=== PATIENT | male | born 1985 | race Caucasian/White ===

== ENCOUNTER 2020-04-14 22:36 | Inpatient (IN) | payer OTHER, SELFPAY ==
--- NOTE | ~2020-04-14 | US_ITS ---
EXAMINATION: US right upper quadrant EXAM DATE: 04/17/2020 08:51 INDICATION: Elevated liver function tests. TECHNIQUE: Multiple grayscale and Doppler images of the abdomen right upper quadrant were obtained (b y a technologist who performed the scan) and subsequently reviewed. Correlation is made to CT abdomen pelvis from yesterday. FINDINGS: The pancreatic head and body are normal in appearance. The pancreatic tail is not visualized. The l iver has normal echogenicity and contour. There are no focal liver lesions identified. There is no evidence of intrahepatic biliary duct dilation. Portal venous flow was seen in the hepatopedal, nor mal direction and has normal Doppler waveform. No right-sided hydronephrosis. Common bile duct is normal. The gallbladder wall is normal in thickness, and contracted state. No so nographic evidence of pericholecystic fluid. There is cholelithiasis. Technologist performing exam reports patient did not demonstrate sonographic Tripathi's sign. Please note that this sign is less r eliable in patients who have received pain medication. IMPRESSION: 1. Cholelithiasis. Reviewed, dictated and finalized at location B. IMPRESSION: 1. Cholelithiasis.
--- NOTE | ~2020-04-14 | XR_ITS ---
XR chest port-a-cath/central DATE: 04/15/2020 04:35 INDICATION: Central line placement TECHNIQUE: Portable AP chest on 04/15/2020 at 0436 hours COMPARISON: 04/14/2020 portable AP chest at 2334 hours FINDINGS: Interval placement of a left internal jugular central venous catheter, the tip overlying th e superior vena cava. No pneumothorax is evident. Bilateral hyperinflation of the lungs. Bilateral spinal rods. IMPRESSION: Left internal jugular central venous catheter placement in superior vena cava; no pneumot horax Reviewed, dictated and finalized at Location A. Reviewed, dictated and finalized at location A. IMPRESSION: Left internal jugular central venous catheter placement in superior vena cava; no pneumothorax
--- NOTE | ~2020-04-14 | US_ITS ---
EXAMINATION: US venous doppler [facility] DATE: 04/16/2020 15:58 INDICATION: Left lower limb swelling TECHNIQUE: Grayscale ultrasound images without and with compression and Doppler ultrasound images of the bilateral lower extremity veins were obtained. COMPARISON: None. FINDINGS: The visualized portions of right common femoral vein, profunda (deep) femoral vein, femoral vein, pop liteal vein, posterior tibial veins, peroneal veins, gastrocnemius vein and greater saphenous vein ou tflow are patent. The visualized portions of left common femoral vein, profunda femoral vein, femoral vein, popliteal v ein, posterior tibial veins, peroneal veins, gastrocnemius vein and greater saphenous vein outflow ar e patent. IMPRESSION: 1. No deep venous thrombosis in either lower limb. Reviewed, dictated and finalized at location A.
--- NOTE | ~2020-04-14 | CT_ITS ---
EXAMINATION: CT abdomen pelvis w con DATE: 04/15/2020 01:20 INDICATION: Lower abdominal pain is TECHNIQUE: Computed tomography (CT) of the abdomen and pelvis was performed with 100 cc Omnipaque 350 intravenous contrast. Automated exposure control and iterative reconstruction technique were employe d. Exam dose: 227.69 mGy-cm total exam DLP. COMPARISON: None. FINDINGS: The lung bases are clear. Normal heart size. No pericardial or pleural effusion. There are multiple gallstones. No gallbladder wall thickening or pericholecystic fluid or inflammatio n. No hepatic, splenic, pancreatic, and adrenal or renal space-occupying mass lesion is evident. Ther e is right nephrolithiasis with multiple calculi of the mid right kidney in particular and an approxi mately 3.5 mm lower pole right renal calculus. No left renal or any left or right ureteral calculus. There are however numerous bladder diverticula, the largest approximately 1.9 cm maximal dimension. T here is diffuse bladder wall thickening suggesting cystitis. There is a suprapubic catheter. Normal caliber of the abdominal aorta. No intraperitoneal or retroperitoneal or pelvic mass lesion or adenopathy or ascites. Transverse colostomy. No bowel obstruction obstruction is evident. Hardware is noted in the thoracic spine. There are decubitus ulcers at the ischium bilaterally and sacrum/coccyx with possible osteomyelitis o f the lower sacrum/coccyx. Consider 3 phase radionuclide bone scan for further evaluation as clinical ly appropriate. IMPRESSION: Cholelithiasis Right nephrolithiasis Multiple bladder stones Suprapubic bladder catheter Bladder wall thickening, suggesting possible cystitis Transverse colostomy Cubitus ulcers; cannot exclude ostium myelitis of the distal sacrum/coccyx Reviewed, dictated and finalized at Location A. Reviewed, dictated and finalized at location A.
--- NOTE | ~2020-04-14 | XR_ITS ---
XR chest 1V portable DATE: 04/14/2020 23:41 INDICATION: Fever, tachycardia TECHNIQUE: Portable AP views on 04/30/2020 at 2334 hours COMPARISON: None FINDINGS: Bilateral spinal rods are noted. Bilateral hyperinflation. No pulmonary infiltrate or consolidation, pleural effusion or pulmonary vas cular congestion or pneumothorax is detected. Normal heart size. IMPRESSION: Bilateral hyperinflation Reviewed, dictated and finalized at location A. IMPRESSION: Bilateral hyperinflation
[2020-04-14 22:35] VITALS: BP 82/63; PULSE 124; RESP 20; TEMP 37.4; O2SAT 97
--- NOTE | 2020-04-14 22:57 | ECG_ITS ---
Measurements Intervals Stuart Rate: 124 P: 53 OH: 131 QRS: 140 QRSD: 101 T: 7 QT: 309 QTc: 444 Interpretive Statements SINUS TACHYCARDIA RIGHT AXIS DEVIATION INCOMPLETE RIGHT BUNDLE BRANCH BLOCK BORDERLINE ST-T WAVE ABNORMALITY- INFERIOR LEADS BASELINE ARTIFACT- I, III, AVL, AVF, V1-V2 ABNORMAL ECG Electronically Signed On 04-15-2020 6:53:59 CDT by Clemente Pope D.O.
--- NOTE | 2020-04-14 23:00 | ED.ARRPALP ---
HPI - Arrhythmia/Palpitations General Chief Complaint: Arrhythmia/Palpitations Stated Complaint: high heart rate Time Seen by Provider: 04/14/20 22:37 Source: patient Mode of arrival: EMS History of Present Illness HPI narrative: This patient is a 35 year old male with history of T5 spinal injury with paraplegia, chronic sacral decubitus who presents for evaluation of an elevated heart rate and illness. Patient reports he has been feeling ill with body aches and fatigue for 3 days. He states he was exposed to someone with COVID symptoms on Wednesday. He called EMS tonight because he felt his heart racing, but he denies associated chest pain or sob. On EMS arrival , patient was found to have HR 250s and a fever of 101.8F. He was given a dose of adenosine 6 mg by EMS and his heart rate decreased to 115. He reports 2 months ago he was admitted to [facility] with an elevated heart rate. He states he was discharged without additional medication and he has not had follow up with a machine rebuilder. He also reports he has chronic decubitus ulcers from being in bed all the time. He states he is receiving daily dressing changes. He states that his wounds are large but they are improving. He reports drainage but states that it has not increased. complaint: rapid heart beat Related Data Home Medications Medication Instructions Recorded Confirmed No Home Medications 04/15/20 04/15/20 Allergies Allergy/AdvReac Type Severity Reaction Status Date / Time No Known Allergies Allergy Mild Verified 10/30/09 23:59 Review of Systems Constitutional: Constitutional: Reports fever(s) ENT: Reports sore throat Cardiovascular: Cardiovascular: Denies chest pain and Reports rapid heart rate Respiratory: Respiratory: Denies cough and Denies dyspnea Gastrointestinal: Gastrointestinal: Denies abdominal pain, Denies diarrhea, Denies nausea and Denies vomiting Musculoskeletal: Musculoskeletal: Reports myalgias Neurologic: Reports headache(s) PMFSH Past Medical History Medical History (Updated 04/15/20 @ 08:00 by Zayra Bond MD) Paraplegic spinal paralysis Pneumothorax Tachycardia Family History Family History (Updated 04/15/20 @ 06:46 by Danni Forte RN) Other Unknown family medical history Social History Social History Smoking status: Former smoker Alcohol intake: former Substance use: never Gender identity (if verbalized by the patient): Male Spiritual care concerns: No Exam Const: General: no acute distress and alert Nutritional Appearance: thin Orientation/consciousness: patient oriented x3 HENMT: Head: normocephalic and atraumatic Face and sinus: face symmetric Mouth: Yes Normal oral and palatal mucosa present, Yes lip normal, Yes oropharynx normal and Yes moist mucous membranes Eyes: Pupils: Equal, round and reactive pupils present EOM: EOMs intact bilaterally Chest: Chest palpation & inspection: normal inspection of the chest Resp: Effort & Inspection: normal respiratory effort and no retractions Auscultation: clear to auscultation bilaterally Cardio: Rate: tachycardic Rhythm: regular rhythm Heart sounds: no murmurs GI: GI Palp: Yes Soft to palpation, No Tenderness to palpation present (GI) and No Guarding due to palpation present (GI) Auscultation: normal bowel sounds Other: colostomy mid abdomen Urinary Catheter: Urinary Catheter: patent and draining Skin: Other: PAtient has bilateral ischial decubitus ulcer and a larger sacral decubits ulcer, with copious amounts of yellow drainage, all appear to be stage 4, the sacral and some necrotic tissue Neuro: General: patient oriented x3 Other: patient is paraplegic no movement of leg. Some movement of left proximal arm with left arm contracture Course Course Emergency Course: PAtient came to ER for tachycardia. He also complained of covid exposure and he does not feel well. He has severe decubitus ulcers and he has
[2020-04-14] MEDS: SODIUM CHLORIDE 0.9% IV 1,000 ML 999 ML IV CONT ×2 (23:16→23:59)
[2020-04-14 23:44] LABS: Basophils Percent Auto 0.3 % (0.2-1.2); Eosinophils Percent Auto 0.4 % (0-4.4); Hematocrit 31.7 % (42.0-52.0); Hemoglobin 9.5 g/dL (14.0-18.0); Immature Granulocyte Absolute 0.05 K/mm3 (0.00-0.031); Immature Granulocyte Percent A 0.7 % (0-0.5); Lymphocytes Absolute Auto 0.93 K/mm3 (0.9-3.2); Lymphocytes Percent Auto 12.5 % (18.3-44.2); Mean Corpuscular Hemoglobin 23.7 pg (26-34); Mean Corpuscular Volume 79.1 fl (80-100); Mean Platelet Volume 8.4 fl (7.4-10.4); Monocytes Percent Auto 12.9 % (2.6-8.5); Neutrophils Absolute Auto 5.4 K/mm3 (1.3-6.7); Neutrophils Percent Auto 73.2 % (45.5-73.1); Platelet Count Result 446 k/mm3 (150-375); Red Blood Count 4.01 M/mm3 (4.6-6.20); Red Cell Distribution Width 16.1 % (11.5-14.5); White Blood Count 7.4 K/mm3 (4.5-10.0)
[2020-04-14 23:50] LABS: INR 1.2; Prothrombin Time 14.9 Seconds (11.1-14.7)
[2020-04-14 23:51] LABS: Partial Thromboplastin Time 51.3 SECONDS (22.3-36.8)
[2020-04-14 23:52] LABS: Lactic Acid Reflex 0.8 mmol/L (0.7-2.1)
[2020-04-15] VITALS (12 sets, daily range): BP systolic 80–106; BP diastolic 56–79; PULSE 83–120; RESP 15–20; TEMP 36.3–37.3; O2SAT 95–100; BMI 20.1
[2020-04-15 00:26] LABS: Alanine Aminotransferase 106 U/L (4-50); Albumin Level 2.7 g/dL (3.5-5.1); Alkaline Phosphatase 463 U/L (38-126); Anion Gap 7 mmol/L (8-16); Aspartate Amino Transferase 107 U/L (17-59); Bilirubin,Total 0.5 mg/dL (0.2-1.3); Blood Urea Nitrogen 12 mg/dL (9-20); CRP 13.8 mg/dL (<1.0); Carbon Dioxide 29 mmol/L (22-30); Chloride 95 mmol/L (98-107); Estimated CRCL calculation 128 ml/min; Estimated Glomerular Filt Rate > 60; Glucose 133 mg/dL (75-110); Potassium 3.2 mmol/L (3.4-5.0); Sodium 131 mmol/L (137-145)
[2020-04-15] MEDS: SODIUM CHLORIDE 0.9% IV 1,000 ML 999 ML IV CONT (01:04)
[2020-04-15] MEDS: SODIUM CHLORIDE 0.9% IV 1,000 ML 125 ML IV CONT ×3 (05:45→23:05)
--- NOTE | 2020-04-15 06:34 | ADMGEN ---
This patient, Abran Gibson, was admitted to Intensive Care Unit-5 at 0545. Patient/family oriented to hospital policies and general routines including ID bracelet, bed and alarms, visiting hours, pain management, procedures, bathroom and other care routines, personal items, smoking policy, room service/diet, and visiting hours. Valuables list has been completed. Information on how to activate the Rapid Response Team has been discussed. Patient/Family are encouraged to report perceived risks to care and to ask questions if they do not understand what they are told or what they should do.
--- NOTE | 2020-04-15 07:47 | PM.CNGS ---
Assessment and Plan Assessment and plan (1) Decubitus ulcer of ischium, unstageable: Code(s): L89.300 - Pressure ulcer of unspecified buttock, unstageable Status: Chronic Assessment and Plan: Patient refuses examination at this time. I will return later and see if he will allow evaluation. (2) Decubitus ulcer of sacral region, unstageable: Code(s): L89.150 - Pressure ulcer of sacral region, unstageable Status: Chronic (3) Paraplegic spinal paralysis: Code(s): G82.20 - Paraplegia, unspecified Status: Chronic History of Present Illness Consult details Consult date: 04/15/20 Narrative: Asked to see patient regarding severe sacral and ischial decubiti. He is currently in the ICU. Nursing reports he has been noncooperative and belligerent. [facility] Past Medical History Medical History (Updated 04/15/20 @ 07:52 by Mario Allen MD) Paraplegic spinal paralysis Pneumothorax Tachycardia Family History Family History (Updated 04/15/20 @ 06:46 by Danni Forte RN) Other Unknown family medical history Social History Social History Smoking status: Former smoker Alcohol intake: former Substance use: never Gender identity (if verbalized by the patient): Male Spiritual care concerns: No Meds Home Medications and Allergies Home Medications Medication Instructions Recorded Confirmed Type No Home Medications 04/15/20 04/15/20 History Allergies Allergy/AdvReac Type Severity Reaction Status Date / Time No Known Allergies Allergy Mild Verified 10/30/09 23:59 Vital Signs Vital Signs - 24 hr 04/14/20 22:35 04/15/20 02:29 04/15/20 04:33 Temperature 37.4 C Pulse Rate 124 H 118 H 105 H Respiratory Rate 20 16 16 Blood Pressure 82/63 L 88/67 L 82/58 L Pulse Oximetry 97 99 97 04/15/20 05:45 04/15/20 06:00 Temperature 36.3 C L Pulse Rate 107 H 107 H Respiratory Rate 20 Blood Pressure 87/62 L Pulse Oximetry 95 Results Labs Result diagrams: 04/14/20 23:25 04/14/20 23:25 Labs: Abnormal lab results 04/14/20 04/14/20 04/14/20 Range/Units 23:25 23:25 23:25 RBC 4.01 L (4.6-6.20) M/mm3 Hgb 9.5 L (14.0-18.0) g/dL Hct 31.7 L (42.0-52.0) % MCV 79.1 L (80-100) fl MCH 23.7 L (26-34) pg MCHC 30.0 L (32-36) g/dl RDW 16.1 H (11.5-14.5) % Plt Count 446 H (150-375) k/mm3 Immature Gran % (Auto) 0.7 H (0-0.5) % Neut % (Auto) 73.2 H (45.5-73.1) % Lymph % (Auto) 12.5 L (18.3-44.2) % Craven % (Auto) 12.9 H (2.6-8.5) % Craven # (Auto) 1.0 H (0.1-0.6) K/mm3 Abs Immat Gran (auto) 0.05 H (0.00-0.031) K/mm3 PT 14.9 H (11.1-14.7) Seconds APTT 51.3 H (22.3-36.8) SECONDS Sodium 131 L (137-145) mmol/L Potassium 3.2 L (3.4-5.0) mmol/L Chloride 95 L (98-107) mmol/L Anion Gap 7 L (8-16) mmol/L Creatinine 0.60 L (0.7-1.3) mg/dL Glucose 133 H (75-110) mg/dL Calcium 8.0 L (8.4-10.2) mg/dL AST 107 H (17-59) U/L ALT 106 H (4-50) U/L Alkaline Phosphatase 463 H (38-126) U/L C-Reactive Protein 13.8 H (<1.0) mg/dL Total Protein 6.0 L (6.3-8.2) g/dL Albumin 2.7 L (3.5-5.1) g/dL Diabetes panel 04/14/20 Range/Units 23:25 Sodium 131 L (137-145) mmol/L Potassium 3.2 L (3.4-5.0) mmol/L Chloride 95 L (98-107) mmol/L Carbon Dioxide 29 (22-30) mmol/L BUN 12 (9-20) mg/dL Creatinine 0.60 L (0.7-1.3) mg/dL Glucose 133 H (75-110) mg/dL Calcium 8.0 L (8.4-10.2) mg/dL AST 107 H (17-59) U/L ALT 106 H (4-50) U/L Alkaline Phosphatase 463 H (38-126) U/L Total Protein 6.0 L (6.3-8.2) g/dL Albumin 2.7 L (3.5-5.1) g/dL Calcium panel 04/14/20 Range/Units 23:25 Calcium 8.0 L (8.4-10.2) mg/dL Albumin 2.7 L (3.5-5.1) g/dL Pituitary panel 04/14/20 Range/Units 23:25 Sodium 131 L (137-145) mmol/L Potassium 3.2 L (3.4-5.0) mmol/L
--- NOTE | 2020-04-15 08:58 | PC.NURSE ---
Patient verbally abusive and threatening to staff. Refuses care. Stated leave me the fuck alone. I want to sleep MD and customer service sales consultant able to assess coccyx wound only.
[2020-04-15 09:11] LABS: Add Urine Microscopic? YES; Appearance Urine Cloudy (Clear); Bilirubin Urine Negative (Negative); Blood Urine Negative (Negative); Calcium Oxalate Crystals Urine Present /hpf; Color Urine Yellow (Yellow); Glucose Urine UA Negative (Negative); Ketones Urine Negative (Negative); Leukocyte Esterase Ur 3+ LEU/UL (Negative); Nitrate Urine Positive (Negative); Protein Urine Negative (Negative); Specific Grav Ur 1.025 (1.001-1.035); Squamous Epithelial Cell Urine Rare /hpf (Few); Urobilinogen Urine Negative mg/dL (<2.0); WBC Clumps Urine Present /HPF; WBC Urine >75 /hpf
--- NOTE | 2020-04-15 09:12 | WPDCNINT ---
Assessment and Plan Assessment and plan (1) Sepsis: Code(s): A41.9 - Sepsis, unspecified organism Status: Acute Assessment and Plan: likely secondary to cystitis and osteomyelitis blood cultures sent and pending will send UA and urine culture patient received IV fluid bolus and is on IV fluid maintenance as per report from alf his blood pressure is normally low and his lactate is normal. Has not required vasopressors at this time but may need Levophed support continue empiric vancomycin and Zosyn (2) Tachycardia: Code(s): R00.0 - Tachycardia, unspecified Status: Acute Assessment and Plan: as per ED note, patient had a narrow complex tachycardia and was given adenosine by EMS which led to rhythm being in sinus tachycardia. Patient continues to be in sinus tach will check echocardiogram (3) Sacral decubitus ulcer, stage IV: Code(s): L89.154 - Pressure ulcer of sacral region, stage 4 Status: Acute Assessment and Plan: wound was examined by wound care nurse. Will continue wound care as per recommendation. Patient refused examination by general surgery. Will discuss regarding any possible debridement. (4) Cholelithiasis: Code(s): K80.20 - Calculus of gallbladder without cholecystitis without obstruction Status: Acute Assessment and Plan: bilirubin is normal patient would not allow examination of his abdomen management per surgery (5) Hypokalemia: Code(s): E87.6 - Hypokalemia Status: Acute Assessment and Plan: replace potassium (6) Suspected COVID-19 virus infection: Code(s): Z20.828 - Contact with and (suspected) exposure to other viral communicable diseases Status: Acute Assessment and Plan: COVID-19 suspected. SARS-CoV-2 PCR sent and results pending Patient is in Airborne, Droplet and Contact Isolation Additional Plan DVT prophylaxis - Will start Lovenox Nutrition - Regular diet Code Status - Full Code Total Critical Care Time - 45 minutes Due to a high probability of clinically significant, life threatening deterioration, the patient required my highest level of preparedness to intervene emergently and I personally spent this critical care time directly and personally managing the patient. This critical care time included obtaining a history; examining the patient; pulse oximetry; ordering and review of studies; arranging urgent treatment with development of a management plan; evaluation of patient's response to treatment; frequent reassessment; and discussions with other providers. It was exclusive of separately billable procedures and treating other patients and teaching time. Please see Assessment and Plan section and the rest of the note for further information on patient assessment and treatment Manufacturing Electrician Consult Note Consult date: 04/15/20 Time Seen: 07:40 HPI: Abran Gibson is a 35 year old male with history of T5 spinal injury with paraplegia, chronic sacral decubitus who was brought to ER from his alf for for evaluation of an elevated heart rate and illness. Patient reported in ER that he has been feeling ill with body aches and fatigue for 3 days. He told them that he was exposed to someone with COVID symptoms on Wednesday. He called EMS tonight because he felt his heart racing, but he denies associated chest pain or sob. On EMS arrival , patient was found to have HR 250s and a fever of 101.8F. He was given a dose of adenosine 6 mg by EMS and his heart rate decreased to 115. He reported 2 months ago he was admitted to [facility] with an elevated heart rate. He states he was discharged without additional medication and he has not had follow up with a senior management consultant. He also reported that he has chronic decubitus ulcers from being in bed all the time. He states he is receiving daily dressing changes. He states that his wounds are large but they are impro
--- NOTE | 2020-04-15 09:22 | PM.IMHP ---
H&P: HPI History of Present Illness Date/Time: 04/15/20 09:22 THIS IS AN INPATIENT PATIENT Chief complaint: septic shock, infected decubitus ulcer, Narrative: Abran Gibson is a 35 year old male with paraplegia brought in from the [place] for elevated heart rate and found to have sepsis. Patient states he has been having 'cold chills and sweats' with fever to 101.8 at home for the past 2 days. He has a suprapubic cath x 1 year as well as a colostomy. He feels there is increased output from the colostomy. He is very unhappy and is reluctant/angry to be answering questions. He repeatedly states that this information 'is all on the computer'. He states he slept poorly and states 'just leave me alone'. He then refuses to speak to me after this time. Thus no further information could be obtained from the patient. He also refuses exam at this time According to the ER notes: 35 year old male with history of T5 spinal injury with paraplegia, chronic sacral decubitus who presents for evaluation of an elevated heart rate and illness. Patient reports he has been feeling ill with body aches and fatigue for 3 days. He states he was exposed to someone with COVID symptoms on Wednesday. He called EMS tonight because he felt his heart racing, but he denies associated chest pain or sob. On EMS arrival , patient was found to have HR 250s and a fever of 101.8F. He was given a dose of adenosine 6 mg by EMS and his heart rate decreased to 115. He reports 2 months ago he was admitted to [facility] with an elevated heart rate. He states he was discharged without additional medication and he has not had follow up with a patient relations director. He also reports he has chronic decubitus ulcers from being in bed all the time. He states he is receiving daily dressing changes. He states that his wounds are large but they are improving. He reports drainage but states that it has not increased. Review of Systems Review of Systems: ROS unobtainable: Yes unobtainable due to mental status PMFSH Past Medical History Medical History Paraplegic spinal paralysis Pneumothorax Tachycardia Family History Family History Other Unknown family medical history Social History Social History (Updated 04/15/20 @ 09:30 by Migel Simon MD) Social History: unknown at this time due to patient being uncooperative. Smoking status: Former smoker Alcohol intake: former Substance use: never Gender identity (if verbalized by the patient): Male Spiritual care concerns: No Meds Home Medications and Allergies Home Medications Medication Instructions Recorded Confirmed Type No Home Medications 04/15/20 04/15/20 History Allergies Allergy/AdvReac Type Severity Reaction Status Date / Time No Known Allergies Allergy Mild Verified 10/30/09 23:59 Vital Signs Vital Signs - 24 hr 04/14/20 22:35 04/15/20 02:29 04/15/20 04:33 Temperature 99.3 F Pulse Rate 124 H 118 H 105 H Respiratory Rate 20 16 16 Blood Pressure 82/63 L 88/67 L 82/58 L Pulse Oximetry 97 99 97 04/15/20 05:45 04/15/20 06:00 04/15/20 08:00 Temperature 97.3 F L Pulse Rate 107 H 107 H 109 H Respiratory Rate 20 20 Blood Pressure 87/62 L 80/56 L Pulse Oximetry 95 99 Exam Narrative: Exam Narrative: AF 97.3 98/67 109 20 99% Gen - well-nourished, well-developed male in no acute respiratory distress who is nontoxic-appearing lying semi recumbent in bed HEENT - normocephalic. Neck - unable to exam Chest - unable to exam CV - unable to exam; Tele showing episode of sinus tachycardia Abd - unable to exam Back - unable to exam - unable to exam Ext - unable to exam Neuro - unable to exam Psych - unhappy and uncooperative. belligerent at times. Skin - unable to exam H&P: Results Labs Labs: Short CBC 04/14/20 Range/Units 23:25 WBC 7.4
[2020-04-15] MEDS: POTASSIUM CHLORIDE 20 MEQ PACKET (FOR LIQUID) 40 MEQ PO ×2 (11:35→18:28)
[2020-04-15] MEDS: SOD HYPOCHLORITE 1/4 STRENGTH 473 ML 1 APPLIC TOPICAL (11:36)
[2020-04-15] MEDS: PANTOPRAZOLE SODIUM IV 40 MG VIAL IV PUSH (11:36)
[2020-04-15] MEDS: CENTRAL LINE FLUSH 10 ML IV PUSH ×3 (14:44→23:06)
[2020-04-15 18:12] LABS: SARS-CoV-2 RNA PCR Positive
--- NOTE | 2020-04-15 18:40 | PC.NURSE ---
Dr. Simon notified of Covid results
--- NOTE | 2020-04-15 19:40 | PC.NURSE ---
Patient is being non cooperative, states that he does not want me to listen to his heart or lungs. Refuses dressing changes at this time. Patient was offered Tylenol IV for temperature of 99.4. States he refuses. Patient was told he's covid positive and that fevers are likely being positive. Patient refuses.
--- NOTE | 2020-04-15 21:32 | PC.NURSE ---
I took over care of pt after he fired his first nurse. He initially wouldn't allow me to do his assessment cussing at me and carrying on. He kept referring to Pritesh as a punk ass bitch . I asked him to take a deep breath and start over cause his options for nurses were limited to myself and Pritesh and talking to us like that was unacceptable. I assured him after I did my first assessment I wouldn't uncover him unless necessary but if something went wrong I needed to know his baseline. He seemed to accept that but if he didn't like what I said like your ostomy needs emptied or are you done with your tray he'd start cussing at me and yelling again. I let the ostomy go cause he was cold but stressed it needed empty before it got to full I then set him up for his dinner apparently he hadn't ate yet. While he said he was to cold to let me do my assessment he did uncover to eat. I asked if he needed anything else he did not so I left to see my other pt. Around 2037 while in with my other pt he called out multiple times demanding his nurse but he would never answer what he needed when asked he just responded with send my nurse. I finished care with my other pt then went to check on him. He immediately started cussing and yelling at me cause why didn't I leave my pt to come tend to him he had slid to the side and wanted me to reposition him and he was done w his tray. I told him just as I wouldn't leave my care with him to go somewhere else I wasn't gonna do it to the other pt either that I was there now was there anything else he needed. He then threw all his covers off saying how burning up the room was now and I was incompetent for not coming when he called. I again saw his ostomy and informed him since he was no longer cold I was going to empty it. He continued yelling and cussing at me. As I opening is ostomy he demanded to know if I knew what I was doing since I was so incompetent. I assured him I did and he continued to cuss and called me names so I closed it and left the room with him still screaming and carrying on. He then proceeded to throw the stuff on his tray that was in reach. Vitals are still stable and he is now listening to music in his room. Will continue to monitor.
--- NOTE | 2020-04-15 23:35 | PC.NURSE ---
Pt called out multiple times about not liking his blood pressure cuff on. I told him I'd be in at 2300 and we would discuss it then. When I went in to assess him I brought fresh ice water. Upon going to refill it I discovered that his previous glass was one of the things he threw across the room so I did not refill it but asked if he needed a sip before I left the room he just looked at me. I offered to plug his phone in as well while I was in there. He declined. He said several hateful remarks but was not yelling this time. I explained with him being covid positive we do try to cluster care so not to be in and out and that while he is Q4 blood pressures now I wanted to leave his cuff on so I could check it periodically from the desk since it was still low at 89. I hung his antibiotic and fluids explaining what they both were. He wasn't happy about it but he did allow me to listen to his lungs while in there. His phone and call light were both in reach. I offered once more before leaving to reposition and asked if he needed anything. Pts blood pressure is soft but his vitals are stable will continue to monitor.
[2020-04-16] VITALS (14 sets, daily range): BP systolic 83–93; BP diastolic 51–64; PULSE 74–122; RESP 15–22; TEMP 36.3–37.7; O2SAT 98–100
--- NOTE | 2020-04-16 | ECHO_ITS ---
Patient Info Name: Abran Taylor Main Age: 35 years : 1985 Gender: Male HR: 112 bpm BP: 86 / 52 mmHg Technical Quality: Poor Exam Date: 04/16/2020 10:36 AM [facility] Patient Status: Inpatient Admit Date: 04/15/2020 Staff Ordering Physician: Remi Davis MD Professor Of Food Biochemistry: Negro Tripathi RDCS, RT Attending Provider: Anali Watters DO Exam Type: CA echo doppler color flow Study Info Indications I45.89 - Other specified conduction disorders Complete two-dimensional, color flow and Doppler transthoracic echocardiogram is performed. Summary 1. Complete two-dimensional, color flow and Doppler transthoracic echocardiogram is performed. 2. Technically suboptimal study due to poor sonographic images. 3. Left ventricular chamber dimension is mildly enlarged. 4. Left ventricular systolic function is preserved, estimated at 50-55%. 5. The left ventricular diastolic function is normal. Left Ventricle Technically suboptimal study due to poor sonographic images. Tissue doppler is not performed. Left ventricular systolic function is preserved, estimated at 50-55%. Left ventricular chamber dimension is mildly enlarged. The left ventricular diastolic function is normal. Right Ventricle Right ventricular chamber dimension is not well visualized. Left Atria Left atrial chamber dimension is normal. Right Atria Right atrial chamber dimension is not well visualized. Aortic Valve The aortic valve is trileaflet. There is no aortic valve stenosis. There is no aortic valve regurgitation. Pulmonic Valve There is no pulmonic regurgitation. Mitral Valve There is no mitral valve stenosis. There is no mitral valve regurgitation. Tricuspid Valve The tricuspid valve leaflets are not well visualized. There is no tricuspid valve regurgitation. Pericardium/Pleural There is no pericardial effusion. Inferior Vena Cava Normal inferior vena cava with >50% collapse upon inspiration consistent with normal right atrial pressure, 5 mmHg. Aorta The aortic root size at the sinus of Valsalva is normal. Left Ventricular Outflow Tract Name Value Normal LVOT Doppler LVOT Peak Gradient 3 mmHg LVOT Mean Gradient 1 mmHg LVOT VTI 13 cm LVOT VTI/AV VTI Ratio 0.9 Mitral Valve Name Value Normal MV Doppler MV Decel Nicholas 420 cm/s2 MV PHT 48 ms MV Area (PHT) 4.6 cm2 4.0-5.0 MV Diastolic Function MV E Peak Velocity 70 cm/s MV A Peak Velocity 48 cm/s MV E/A 1.5 MV Decel Time 166 ms Tricuspid Valve Nam
[2020-04-16] MEDS: SODIUM CHLORIDE 0.9% IV 1,000 ML 125 ML IV CONT ×2 (06:13→23:16)
[2020-04-16] MEDS: CENTRAL LINE FLUSH 10 ML IV PUSH ×4 (06:14→23:18)
--- NOTE | 2020-04-16 06:49 | PC.NURSE ---
When I went in to take of the pt and draw his blood. He was very angry and began cursing at me for disturbing him. He stated if I tried to draw his labs he would rip the line out of his neck I was able to empty his chavis and hang meds without waking him.
[2020-04-16] MEDS: PANTOPRAZOLE SODIUM IV 40 MG VIAL IV PUSH (11:01)
--- NOTE | 2020-04-16 11:06 | PCDIET ---
ICU Rounding Note: Patient consuming about half of meals on regular diet with Ensure Compact TID. Last recorded weight is 66kg which is increased from last review. Bowel Motility: 450mL ostomy output today. Labs Reviewed: Pending Meds Noted: Protonix, Zosyn, Vancomycin, NS at 125mL/hr Additional Notes: Pressure ulcers to bilateral buttocks, right heel and sacrum. Following daily in ICU rounds. Assessing/reassessing every 3 days.
[2020-04-16 11:51] LABS: Iron 12 ug/dL (49-181)
[2020-04-16 12:00] LABS: Percent Iron Saturation 6 % (20-50)
[2020-04-16 12:18] LABS: HIV 1/2 Ab P24 Ag Result Negative (Negative)
[2020-04-16 12:28] LABS: Hepatitis B Surface Antigen Negative (Negative)
[2020-04-16 12:34] LABS: HAV RESULT Negative (Negative); Hepatitis B Core IgM Result Negative (Negative)
[2020-04-16 12:46] LABS: Hepatitis C Virus Antibody Negative (Negative)
--- NOTE | 2020-04-16 12:57 | PC.NURSE ---
After continually Refusing most medications, not allowing us to do full assessments head to toe, pt stated that his left leg was swollen, moved covers and agreed with pt, then pt started yelling and stated no one cares about his concerns and stated he is about ready to go home AMA. PT refused drsng change to buttocks and coccyx area, he stated it is to be done 3 times a week, --. This nurse informed him that doctor's have odered for it to be done twice a day, pt refused. Everything that pt states has large amount of profanity with his vocabulary
[2020-04-16 13:34] LABS: Alanine Aminotransferase 55 U/L (4-50); Albumin Level 2.2 g/dL (3.5-5.1); Alkaline Phosphatase 264 U/L (38-126); Anion Gap 4 mmol/L (8-16); Aspartate Amino Transferase 27 U/L (17-59); Bilirubin,Total 0.1 mg/dL (0.2-1.3); Blood Urea Nitrogen 4 mg/dL (9-20); Calcium 7.8 mg/dL (8.4-10.2); Carbon Dioxide 30 mmol/L (22-30); Chloride 104 mmol/L (98-107); Estimated CRCL calculation 136 ml/min; Estimated Glomerular Filt Rate > 60; Glucose 92 mg/dL (75-110); Magnesium 1.9 mg/dL (1.6-2.3); Potassium 4.5 mmol/L (3.4-5.0); Sodium 138 mmol/L (137-145)
[2020-04-16 14:27] LABS: Folic Acid 6.3 ng/mL (2.76->20)
--- NOTE | 2020-04-16 15:11 | PM.IMPN ---
Progress Note: A&P Assessment and Plan (1) Sepsis: Code(s): A41.9 - Sepsis, unspecified organism Status: Acute Assessment and Plan: Present on admission with tachycardia, hypotension and CRP of 14. Blood pressure was responsive to IV fluids. His a central line placed has not required pressors. Chest x-ray clear. Cultures obtained. Most likely sepsis related to his decubitus ulcer but cannot exclude UTI/ urosepsis. Patient has been started on broad-spectrum IV antibiotics Zosyn and vancomycin. Continue IV fluids. Follow up on cultures. (2) Tachycardia: Code(s): R00.0 - Tachycardia, unspecified Status: Acute Assessment and Plan: Patient noted to have narrow complex tachycardia in the emergency room and received adenosine. Probably SVT. Rhythm has returned to normal sinus tachycardia. Heart rate overall has improved with IV fluids. Continue telemetry. No home medications listed . echocardiogram revealed ejection fraction of 55% with no valvular abnormalities (3) Sacral decubitus ulcer, stage IV: Code(s): L89.154 - Pressure ulcer of sacral region, stage 4 Status: Acute Assessment and Plan: Unable to visualize wound at this time. General surgery was consult but they also were not able to visualize the wound. Switch Engineer was allowed to see the wound. CT scan showing decubitus ulcers at the ischium bilaterally and sacrum/coccyx with possible osteomyelitis of the lower sacrum/coccyx. Most likely the etiology of his sepsis. Wound care nurse has been consulted. Continue dressing changes. Continue IV antibiotics. Consider further testing to determine if patient with osteomyelitis (although utility arborist mentions bone is visibile on exam) (4) Complicated UTI (urinary tract infection): Code(s): N39.0 - Urinary tract infection, site not specified Status: Acute Assessment and Plan: UA noted. UCx pending. Follow up with cultures. Routine SP care. Continue IV antibiotics. (5) Decubitus ulcer of ischium, unstageable: Code(s): L89.300 - Pressure ulcer of unspecified buttock, unstageable Status: Chronic Assessment and Plan: as above. Continue dressing changes. Continue IV antibiotics. (6) Hypokalemia: Code(s): E87.6 - Hypokalemia Status: Acute Assessment and Plan: Potassium slightly low on admission. 4.5 today. (7) Suspected COVID-19 virus infection: Code(s): Z20.828 - Contact with and (suspected) exposure to other viral communicable diseases Status: Acute Assessment and Plan: Chest x-ray essentially clear. COVID swab obtained and is positive. no steroids or remdesivir since he is not hypoxic (8) Microcytic anemia: Code(s): D50.9 - Iron deficiency anemia, unspecified Status: Acute Assessment and Plan: hemoglobin 9.5. Patient does have a colostomy. However unclear if he is having acute blood loss but feels less likely. Anemia is microcytic. iron studies compatible with anemia of chronic disease Protonix. Monitor H&H closely. (9) Elevated liver enzymes: Code(s): R74.8 - Abnormal levels of other serum enzymes Status: Acute Assessment and Plan: AST and ALT are elevated. Bilirubin level normal. Alk-phos is elevated but this could be related to his chronic bed rest from his paraplegia. Related to the ongoing sepsis possibly. hepatitis panel negative for hep A, B and C Check right upper quadrant ultrasound. (10) Cholelithiasis: Code(s): K80.20 - Calculus of gallbladder without cholecystitis without obstruction Status: Acute Assessment and Plan: Multiple gallstones noted by CT scan but no gallbladder wall thickening or pericholecystic fluid or evidence of inflammation. Will check right upper quadrant ultrasound given the elevated liver enzymes. (11) Paraplegic spinal paralysis:
[2020-04-16 15:42] LABS: Basophils Percent Auto 0.2 % (0.2-1.2); Eosinophils Absolute Auto 0.2 K/mm3 (0-0.3); Eosinophils Percent Auto 3.3 % (0-4.4); Hematocrit 30.9 % (42.0-52.0); Immature Granulocyte Absolute 0.05 K/mm3 (0.00-0.031); Immature Granulocyte Percent A 0.9 % (0-0.5); Lymphocytes Absolute Auto 1.24 K/mm3 (0.9-3.2); Lymphocytes Percent Auto 22.6 % (18.3-44.2); Mean Corpuscular HGB Conc 29.1 g/dl (32-36); Mean Corpuscular Hemoglobin 23.6 pg (26-34); Mean Corpuscular Volume 81.1 fl (80-100); Mean Platelet Volume 7.9 fl (7.4-10.4); Monocytes Absolute Auto 0.5 K/mm3 (0.1-0.6); Monocytes Percent Auto 9.3 % (2.6-8.5); Neutrophils Absolute Auto 3.5 K/mm3 (1.3-6.7); Neutrophils Percent Auto 63.7 % (45.5-73.1); Platelet Count Result 369 k/mm3 (150-375); Red Blood Count 3.81 M/mm3 (4.6-6.20); Red Cell Distribution Width 16.2 % (11.5-14.5); White Blood Count 5.5 K/mm3 (4.5-10.0)
[2020-04-16 16:27] LABS: Vancomycin Trough 8.4 ug/mL (10.0-20.0)
[2020-04-16 16:45] LABS: Platelet Estimate Adequate (Adequate)
[2020-04-16 16:46] LABS: Anisocytosis 2+ (NORMAL); Hypochromasia 1+ (NORMAL)
[2020-04-16] MEDS: ACETAMINOPHEN 325 MG TABLET 650 MG PO (18:45)
--- NOTE | 2020-04-16 19:57 | PC.NURSE ---
Addendum entered by Salvatore Wade RN 04/16/20 19:59: -- in the trash Explained to patient that after IV fluids are open we throw plastic wrapping in trash but do not touch the actual waste. Pt continues to state that it is unsanitary and would like a different RN. Charge nurse COLE made aware. Original Note: Introduced self to patient and began to explain plan for medications and dressing change and question patient what he would allow, pt became beliigerent and stated don't touch me after rooting around int he
[2020-04-17] VITALS (16 sets, daily range): BP systolic 76–94; BP diastolic 53–61; PULSE 82–137; RESP 15–26; TEMP 36.5–37.8; O2SAT 97–99
[2020-04-17 03:45] LABS: Hematocrit 30.5 % (42.0-52.0); Hemoglobin 8.9 g/dL (14.0-18.0); Mean Corpuscular HGB Conc 29.2 g/dl (32-36); Mean Corpuscular Hemoglobin 23.8 pg (26-34); Mean Corpuscular Volume 81.6 fl (80-100); Mean Platelet Volume 8.1 fl (7.4-10.4); Platelet Count Result 382 k/mm3 (150-375); Red Blood Count 3.74 M/mm3 (4.6-6.20); Red Cell Distribution Width 16.2 % (11.5-14.5); White Blood Count 5.3 K/mm3 (4.5-10.0)
[2020-04-17 04:02] LABS: Alanine Aminotransferase 40 U/L (4-50); Albumin Level 2.3 g/dL (3.5-5.1); Alkaline Phosphatase 225 U/L (38-126); Anion Gap 3 mmol/L (8-16); Aspartate Amino Transferase 22 U/L (17-59); Bilirubin,Total 0.2 mg/dL (0.2-1.3); Blood Urea Nitrogen 4 mg/dL (9-20); Calcium 7.8 mg/dL (8.4-10.2); Carbon Dioxide 33 mmol/L (22-30); Chloride 104 mmol/L (98-107); Estimated CRCL calculation 118 ml/min; Estimated Glomerular Filt Rate > 60; Glucose 124 mg/dL (75-110); Potassium 3.8 mmol/L (3.4-5.0); Sodium 140 mmol/L (137-145)
[2020-04-17] MEDS: CENTRAL LINE FLUSH 10 ML IV PUSH ×2 (07:22→14:14)
[2020-04-17] MEDS: SODIUM CHLORIDE 0.9% IV 1,000 ML 125 ML IV CONT ×2 (09:07→17:10)
[2020-04-17] MEDS: ACETAMINOPHEN 325 MG TABLET 650 MG PO (13:15)
--- NOTE | 2020-04-17 15:22 | PM.IMPN ---
Progress Note: A&P Assessment and Plan (1) Sepsis: Code(s): A41.9 - Sepsis, unspecified organism Status: Acute Assessment and Plan: Present on admission with tachycardia, hypotension and CRP of 14. Blood pressure was responsive to IV fluids. His a central line placed has not required pressors. Chest x-ray clear. Cultures obtained. Most likely sepsis related to his decubitus ulcer but cannot exclude UTI/ urosepsis. Patient has been started on broad-spectrum IV antibiotics Zosyn and vancomycin. Continue IV fluids. Follow up on cultures. (2) Tachycardia: Code(s): R00.0 - Tachycardia, unspecified Status: Acute Assessment and Plan: Patient noted to have narrow complex tachycardia in the emergency room and received adenosine. Probably SVT. Rhythm has returned to normal sinus tachycardia. Heart rate overall has improved with IV fluids. Continue telemetry. No home medications listed . echocardiogram revealed ejection fraction of 55% with no valvular abnormalities (3) Sacral decubitus ulcer, stage IV: Code(s): L89.154 - Pressure ulcer of sacral region, stage 4 Status: Acute Assessment and Plan: Unable to visualize wound at this time. General surgery was consult but they also were not able to visualize the wound. Stable Manager was allowed to see the wound. CT scan showing decubitus ulcers at the ischium bilaterally and sacrum/coccyx with possible osteomyelitis of the lower sacrum/coccyx. Most likely the etiology of his sepsis. Wound care nurse has been consulted. Continue dressing changes. Continue IV antibiotics. Consider further testing to determine if patient with osteomyelitis (although application systems engineer mentions bone is visibile on exam) (4) Complicated UTI (urinary tract infection): Code(s): N39.0 - Urinary tract infection, site not specified Status: Acute Assessment and Plan: UA noted. UCx pending. Follow up with cultures. Routine SP care. Continue IV antibiotics. (5) Decubitus ulcer of ischium, unstageable: Code(s): L89.300 - Pressure ulcer of unspecified buttock, unstageable Status: Chronic Assessment and Plan: as above. Continue dressing changes. Continue IV antibiotics. (6) Hypokalemia: Code(s): E87.6 - Hypokalemia Status: Acute Assessment and Plan: Potassium slightly low on admission. 3.8 today. (7) Suspected COVID-19 virus infection: Code(s): Z20.828 - Contact with and (suspected) exposure to other viral communicable diseases Status: Acute Assessment and Plan: Chest x-ray essentially clear. COVID swab obtained and is positive. no steroids or remdesivir since he is not hypoxic (8) Microcytic anemia: Code(s): D50.9 - Iron deficiency anemia, unspecified Status: Acute Assessment and Plan: hemoglobin 8.9. Patient does have a colostomy. However unclear if he is having acute blood loss but feels less likely. Anemia is microcytic. iron studies compatible with anemia of chronic disease Protonix. Monitor H&H closely. (9) Elevated liver enzymes: Code(s): R74.8 - Abnormal levels of other serum enzymes Status: Acute Assessment and Plan: AST and ALT are elevated. Bilirubin level normal. Alk-phos is elevated but this could be related to his chronic bed rest from his paraplegia. Related to the ongoing sepsis possibly. hepatitis panel negative for hep A, B and C right upper quadrant ultrasound unremarkable (10) Cholelithiasis: Code(s): K80.20 - Calculus of gallbladder without cholecystitis without obstruction Status: Acute Assessment and Plan: Multiple gallstones noted by CT scan but no gallbladder wall thickening or pericholecystic fluid or evidence of inflammation. right upper quadrant ultrasound no new findings from CT (11) Paraplegic spinal paralysis: Code(s):
[2020-04-17] MEDS: SOD HYPOCHLORITE 1/4 STRENGTH 473 ML 1 APPLIC TOPICAL (16:05)
--- NOTE | 2020-04-17 20:58 | PC.NURSE ---
Patient refuses all assessments and dressing changes for the night. States It's bulls how you guys think you can just walk in here and wake me up whenever you want. Don't you touch me. Leave me alone the rest of the night. Kathleen Iglesias notified.
[2020-04-18] VITALS (11 sets, daily range): BP systolic 86–101; BP diastolic 50–67; PULSE 70–125; RESP 14–22; TEMP 37.1–38.2; O2SAT 99–100
[2020-04-18] MEDS: CENTRAL LINE FLUSH 10 ML IV PUSH ×2 (04:33→13:51)
[2020-04-18] MEDS: SODIUM CHLORIDE 0.9% IV 1,000 ML 125 ML IV CONT ×3 (04:33→18:28)
[2020-04-18 04:58] LABS: Basophils Percent Auto 0.2 % (0.2-1.2); Eosinophils Absolute Auto 0.2 K/mm3 (0-0.3); Eosinophils Percent Auto 4.6 % (0-4.4); Hematocrit 29.6 % (42.0-52.0); Hemoglobin 8.6 g/dL (14.0-18.0); Immature Granulocyte Absolute 0.05 K/mm3 (0.00-0.031); Immature Granulocyte Percent A 1.2 % (0-0.5); Lymphocytes Absolute Auto 1.33 K/mm3 (0.9-3.2); Lymphocytes Percent Auto 31.9 % (18.3-44.2); Mean Corpuscular HGB Conc 29.1 g/dl (32-36); Mean Corpuscular Hemoglobin 23.3 pg (26-34); Mean Corpuscular Volume 80.2 fl (80-100); Mean Platelet Volume 8.4 fl (7.4-10.4); Monocytes Absolute Auto 0.4 K/mm3 (0.1-0.6); Monocytes Percent Auto 9.1 % (2.6-8.5); Neutrophils Absolute Auto 2.2 K/mm3 (1.3-6.7); Platelet Count Result 359 k/mm3 (150-375); Red Blood Count 3.69 M/mm3 (4.6-6.20); Red Cell Distribution Width 16.1 % (11.5-14.5); White Blood Count 4.2 K/mm3 (4.5-10.0)
[2020-04-18 05:08] LABS: Magnesium 2.1 mg/dL (1.6-2.3)
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
[2020-04-18 05:15] LABS: Alanine Aminotransferase 29 U/L (4-50); Albumin Level 2.3 g/dL (3.5-5.1); Alkaline Phosphatase 190 U/L (38-126); Anion Gap 1 mmol/L (8-16); Aspartate Amino Transferase 21 U/L (17-59); Bilirubin,Total 0.2 mg/dL (0.2-1.3); Blood Urea Nitrogen 4 mg/dL (9-20); CRP 4.5 mg/dL (<1.0); Calcium 7.9 mg/dL (8.4-10.2); Carbon Dioxide 33 mmol/L (22-30); Chloride 102 mmol/L (98-107); Estimated CRCL calculation 134 ml/min; Estimated Glomerular Filt Rate > 60; Glucose 118 mg/dL (75-110); Lactate Dehydrogenase 255 U/L (313-618); Sodium 136 mmol/L (137-145)
[2020-04-18 05:16] LABS: D Dimer 0.55 ug/mL (<0.48)
[2020-04-18 05:53] LABS: Vancomycin Trough 10.6 ug/mL (10.0-20.0)
--- NOTE | 2020-04-18 15:30 | PC.NURSE ---
This patient, Abran Gibson, was received from [ ] on 04/18/20 at 1530. Patient/family oriented to unit policies and routines
--- NOTE | 2020-04-18 15:47 | PC.NURSE ---
This patient, Abran Gibson, was transferred to2 on 04/18/20 at 1525. Personal belongings sent with patient. Report given to MITCH Cruz. Appropriate documentation sent with patient.
--- NOTE | 2020-04-18 17:22 | PM.IMPN ---
Progress Note: A&P Assessment and Plan (1) Sepsis: Code(s): A41.9 - Sepsis, unspecified organism Status: Acute Assessment and Plan: Present on admission with tachycardia, hypotension and CRP of 14. Blood pressure was responsive to IV fluids. His a central line placed has not required pressors. Chest x-ray clear. Cultures and BC NG with urine Klebsiella and Enterococcus both sensitive to Zosyn. Most likely sepsis related to his decubitus ulcer but cannot exclude UTI/ urosepsis. continue IV antibiotics Zosyn and vancomycin. . (2) Tachycardia: Code(s): R00.0 - Tachycardia, unspecified Status: Acute Assessment and Plan: Patient noted to have narrow complex tachycardia in the emergency room and received adenosine. Probably SVT. Rhythm has returned to normal sinus tachycardia. Heart rate overall has improved with IV fluids. Continue telemetry. No home medications listed . echocardiogram revealed ejection fraction of 55% with no valvular abnormalities (3) Sacral decubitus ulcer, stage IV: Code(s): L89.154 - Pressure ulcer of sacral region, stage 4 Status: Acute Assessment and Plan: Unable to visualize wound at this time( patient refused). General surgery was consult but they also were not able to visualize the wound. Vial Gauger was allowed to see the wound. CT scan showing decubitus ulcers at the ischium bilaterally and sacrum/coccyx with possible osteomyelitis of the lower sacrum/coccyx. Most likely the etiology of his sepsis. Wound care nurse has been consulted. Continue dressing changes. Continue IV antibiotics. (although civil engineering technician mentions bone is visibile on exam which meets the criteria for osteomyelitis) (4) Complicated UTI (urinary tract infection): Code(s): N39.0 - Urinary tract infection, site not specified Status: Acute Assessment and Plan: UA noted. and culture growing the Enterococcus and Klebsiella as above sensitive to the Zosyn as well as Augmentin Continue IV antibiotics. (5) Decubitus ulcer of ischium, unstageable: Code(s): L89.300 - Pressure ulcer of unspecified buttock, unstageable Status: Chronic Assessment and Plan: as above. Continue dressing changes. Continue IV antibiotics. (6) Hypokalemia: Code(s): E87.6 - Hypokalemia Status: Acute Assessment and Plan: Potassium slightly low on admission. 4.0 today. (7) Suspected COVID-19 virus infection: Code(s): Z20.828 - Contact with and (suspected) exposure to other viral communicable diseases Status: Acute Assessment and Plan: Chest x-ray essentially clear. COVID swab obtained and is positive. no steroids or remdesivir since he is not hypoxic (8) Microcytic anemia: Code(s): D50.9 - Iron deficiency anemia, unspecified Status: Acute Assessment and Plan: hemoglobin 8.6. Patient does have a colostomy. However unclear if he is having acute blood loss but feels less likely. Anemia is microcytic. iron studies compatible with anemia of chronic disease Protonix. Monitor H&H closely. (9) Elevated liver enzymes: Code(s): R74.8 - Abnormal levels of other serum enzymes Status: Acute Assessment and Plan: AST and ALT are elevated. Bilirubin level normal. Alk-phos is elevated but this could be related to his chronic bed rest from his paraplegia. Related to the ongoing sepsis possibly. hepatitis panel negative for hep A, B and C right upper quadrant ultrasound unremarkable (10) Cholelithiasis: Code(s): K80.20 - Calculus of gallbladder without cholecystitis without obstruction Status: Acute Assessment and Plan: Multiple gallstones noted by CT scan but no gallbladder wall thickening or pericholecystic fluid or evidence of inflammation. right upper quadrant ultrasound no new findings from CT and no abdominal pain
--- NOTE | 2020-04-18 18:37 | PC.NURSE ---
Prior to transfer to new unit, brought bed into room and explained about why the need was to change beds, pt started yelling at staff calling every one that has ever been in his room souleymane nunez using many explicit and profane words, did not like the way his colostomy was cleaned so he tore it off his body and threw it against the wall, told him about having towear the face mask and that it was required, he continued to refuse that and continued calling profanities to any one that could hear him then he finally put it on his face, two nurses had to transfer him via bed to new room
--- NOTE | 2020-04-18 21:00 | PC.NURSE ---
This nurse went into patient's room to change pt's dressing, and flush their central line. Pt refused to have dressing changed or central line flushed. Pt also refused to allow this nurse to assess the pt. Pt. educated on risks and complications of not allowing dressing changes or central line flushes. Pt continues to be non cooperative and curses frequently at staff. MD made aware of patients behavior and refusal of care and medications.
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
[2020-04-18] MEDS: ACETAMINOPHEN 325 MG TABLET 650 MG PO (23:38)
[2020-04-19] VITALS: BP 102/62; PULSE 118; RESP 16; TEMP 38.2; O2SAT 98
[2020-04-19 00:38] VITALS: TEMP 36.9
[2020-04-19 01:15] VITALS: TEMP 36.9
[2020-04-19 04:00] VITALS: BP 84/51; PULSE 83; RESP 16; TEMP 36.6; O2SAT 99
[2020-04-19] MEDS: SODIUM CHLORIDE 0.9% IV 1,000 ML 125 ML IV CONT (05:08)
[2020-04-19 08:00] VITALS: BP 96/57; PULSE 114; RESP 18; TEMP 36.3; O2SAT 99
--- NOTE | 2020-04-19 09:05 | PC.NURSE ---
Patient refused dressing change or to be turned.
[2020-04-19] MEDS: CENTRAL LINE FLUSH 10 ML IV PUSH (09:06)
[2020-04-19] MEDS: PANTOPRAZOLE SODIUM IV 40 MG VIAL IV PUSH (09:06)
--- NOTE | 2020-04-19 09:55 | PM.CNGS ---
Assessment and Plan Assessment and plan (1) Sacral decubitus ulcer, stage IV: Code(s): L89.154 - Pressure ulcer of sacral region, stage 4 Status: Chronic Assessment and Plan: Patient very noncompliant as well as being disagreeable and even belligerent. He has no intention of taking care of these decubiti I either in the hospital or once he is discharged. I do not see evidence of osteomyelitis from looking at the photographs. I discussed with the hospitalist, Dr. Manzo, that I will be signing off and do not plan on any follow-up. Unfortunately, the patient will continue to have and even developed worse decubiti I due to his noncompliance but there is little to be done to improve that since he has chosen this path. Ideally we would want to keep him on Dakin solution dressing changes twice a day after discharge. We can schedule a follow-up in the wound clinic but I very much doubt he will attend. (2) Paraplegic spinal paralysis: Code(s): G82.20 - Paraplegia, unspecified Status: Chronic History of Present Illness Consult details Consult date: 04/19/20 Narrative: Paraplegic gentleman with extensive decubiti I sacrum and both ischial areas. I have been by to see him and have discussed his care with nursing multiple times since my initial attempt. He has always refused me examining him. He generally refuses wound care as well. He is ordered to have Dakin's dressing changes to his decubiti I twice a day. He agrees to a dressing change about every other to every 3rd day. He is been very disagreeable, contention cysts and non compliant throughout the admission. I have been able to view the 2 sets of photographs that the wound nurse has been able to take. They do not show any significant need for debridement. The sacral necrotic areas have much improved even with these very sparing dressing changes. The last set of photographs were reviewed today. They show very clean wounds and much improvement even with the significant noncompliance. Review of Systems Review of Systems: All systems reviewed & are unremarkable except as noted in HPI and below ( Obtained entirely from the medical record. Patient not forthcoming.) [facility] Past Medical History Medical History (Updated 04/19/20 @ 09:59 by Mario Allen MD) Paraplegic spinal paralysis Pneumothorax Tachycardia Family History Family History Other Unknown family medical history Social History Social History (Updated 04/15/20 @ 09:30 by Migel Simon MD) Social History: unknown at this time due to patient being uncooperative. Smoking status: Former smoker Alcohol intake: former Substance use: never Gender identity (if verbalized by the patient): Male Spiritual care concerns: No Meds Home Medications and Allergies Home Medications Medication Instructions Recorded Confirmed Type No Home Medications 04/15/20 04/15/20 History Allergies Allergy/AdvReac Type Severity Reaction Status Date / Time No Known Allergies Allergy Mild Verified 10/30/09 23:59 Vital Signs Vital Signs - 24 hr 04/18/20 10:00 04/18/20 12:00 04/18/20 14:00 Temperature Pulse Rate 78 84 91 Respiratory Rate 15 Blood Pressure 89/63 L Pulse Oximetry 100 04/18/20 17:30 04/18/20 20:00 04/18/20 23:38 Temperature 37.1 C 37.2 C 38.2 C H Pulse Rate 125 H Respiratory Rate 18 Blood Pressure 101/67 Pulse Oximetry 99 04/19/20 00:00 04/19/20 00:38 04/19/20 01:15 Temperature 38.2 C H 36.9 C 36.9 C Pulse Rate 118 H Respiratory Rate 16 Blood Pressure 102/62 Pulse Oximetry 98 04/19/20 04:00 Temperature 36.6 C Pulse Rate 83 Respiratory Rate 16 Blood Pressure 84/51 L Pulse Oximetry 99 Exam Const: Other: Unable to examine due to patient refusal. Results Labs Result diagrams: 04/18/20 03:55 04/18/20 03:55 Labs
--- NOTE | 2020-04-19 11:16 | PCDIET ---
Nutrition Follow-Up Complete: Nutrition Diagnosis: Increased kcal/protein needs related to increased demands as evidenced by unhealed pressure ulcer and dx sepsis. Nutrition Goal: Patient to consume 75% of meals/supplements or greater. Goal in progress. Patient consumed average of 58% of meals yesterday on regular diet which is appropriate. Recommend continuing Ensure Compact TID and adding Reilly (80kcal, 14g amino acid) BID to further support healing. Last recorded weight is 66.6 kg which is increased from last review. Bowel Motility: +Stool via ostomy. Labs Reviewed: Hgb (8.6), Hct (29.6), Glu (118), BUN (4), Cr (0.6), Na (136), Alb (2.3), José Luis Ca (9.26) Meds Noted: Protonix, Zosyn, NS at 125mL/hr, Vancomycin Additional Notes: Patient reportedly refusing to allow staff to assess wounds or change dressings. Will continue to monitor with same goal. Nutrition Monitoring and Evaluation: Follow up every 5 days.
[2020-04-19 12:00] VITALS: BP 87/55; PULSE 85; RESP 16; TEMP 36.7; O2SAT 98
--- NOTE | 2020-04-19 12:29 | PC.NURSE ---
Patient still refuse dressing change or lab work. Also refuses to be turned.
[2020-04-19] MEDS: NEOMYCIN/POLYMYXIN/BACITRACIN OINTMENT PACKET 1 PACKET (15:25)
--- NOTE | 2020-04-19 15:40 | PC.NURSE ---
1445- Entered patients room to remove Left IJ. Patient instructed on removal of the central line. Patient became very loud and verbally abusive and refused removal of central line. Patient called his mother on his personal phone and started video recording staff. Patient asked to turn phone off. Staff left the room and called a destiney mueller.1525-After much talking patient agreed to have central line removed. Patient was very verbally abusive again with racial slurs.
--- NOTE | 2020-04-19 16:30 | PC.NURSE ---
Patient refused wound photos for discharge. Discharge instructions given to patient about central line dressing.
--- NOTE | 2020-04-19 18:30 | PC.NURSE ---
Ambulance crew here to take patient home. Patient again became verbally abusive about wearing a mask and began empting urine bag without container. RN stopped the drainage of urine bag. As patient left in hallway patient again made another racial statement Tell Linda GARCIA it's that time of year for white gowns and hats .
--- NOTE | 2020-04-24 11:02 | PM.DS ---
DS: Admitting Diagnosis Admitting Diagnosis Admitting Diagnosis: septic shock, infected decubitus ulcer, DS: Discharge Diagnosis Discharge Diagnosis (1) Sepsis: Code(s): A41.9 - Sepsis, unspecified organism Status: Acute Assessment and Plan: Present on admission with tachycardia, hypotension and CRP of 14. Blood pressure was responsive to IV fluids. His a central line placed but did not require pressors. Chest x-ray clear. Cultures and BC NG with urine Klebsiella and Enterococcus both sensitive to Zosyn. Most likely sepsis related to his decubitus ulcer or UTI/ urosepsis. continued IV antibiotics Zosyn and vancomycin. while here and transitioned to augmentin on dsicharge with both urine pathogens sensitive to as above. . (2) Tachycardia: Code(s): R00.0 - Tachycardia, unspecified Status: Acute Assessment and Plan: Patient noted to have narrow complex tachycardia in the emergency room and received adenosine. Probably SVT. Rhythm has returned to normal sinus tachycardia. Heart rate overall improved with IV fluids . echocardiogram revealed ejection fraction of 55% with no valvular abnormalities (3) Sacral decubitus ulcer, stage IV: Code(s): L89.154 - Pressure ulcer of sacral region, stage 4 Status: Chronic Assessment and Plan: Unable to visualize wound at this time( patient refused). General surgery was consulted but they also were not able to visualize the wound. Line Helper was allowed to see the wound. CT scan showing decubitus ulcers at the ischium bilaterally and sacrum/coccyx with possible osteomyelitis of the lower sacrum/coccyx. Possible etiology of his sepsis. Wound care nurse was consulted. Continued dressing changes as patient would allow which was very infrequent. Pictures on 2 occasions revealed improvement in wound with minimal local care because pt would not allow.. Continue IV antibiotics. Patient had previously received 6 weeks of IV antibiotic therapy at home for probable osteomyelitis. It was decided by all including surgery and wound care that without proper local care which the patient would not allow the chance of complete healing with very slim.Thus Long-term antibiotics were not suggested again and we stressed the importance of regular dressing changes and appropriate local care. Patient is obviously very non compliant and doubt he will follow those instructions. Care coordination spent a good deal of effort trying to arrange for home health care and wound care center as well as follow-up for his suprapubic catheter. It was stressed that if he does not tear care of these situations that his life expectancy be short. (4) Complicated UTI (urinary tract infection): Code(s): N39.0 - Urinary tract infection, site not specified Status: Acute Assessment and Plan: UA noted. and culture growing the Enterococcus and Klebsiella as above sensitive to the Zosyn as well as Augmentin continue augmentin on discharge for total of 19 day rx (5) Decubitus ulcer of ischium, unstageable: Code(s): L89.300 - Pressure ulcer of unspecified buttock, unstageable Status: Chronic Assessment and Plan: as above. Continue dressing changes. Continue IV antibiotics.while here and po augmentin at home (6) Hypokalemia: Code(s): E87.6 - Hypokalemia Status: Acute Assessment and Plan: Potassium slightly low on admission. bukt with supplements returned to normal. (7) Suspected COVID-19 virus infection: Code(s): Z20.828 - Contact with and (suspected) exposure to other viral communicable diseases Status: Acute Assessment and Plan: Chest x-ray essentially clear. COVID swab obtained and was postive.. no steroids or remdesivir since he was not hypoxic and remained on RA with saturations above 94% at discharge. instruction was given on isolation and quarantine on discharge
== END 2020-04-19 18:30 | disposition home health service (06) | DRG 720 ==
LOC: ANHED 23:22 → ANHICU 04-15 08:00 → ANH3MEDSUR 04-19 14:03 → ANHICU 04-23 11:19
PROVIDERS: Internal Medicine; Admitting Provider Internal Medicine; Emergency Provider General Practice; Visit Provider Internal Medicine
DX: A41.89 Other specified sepsis (principal); U07.1 COVID-19; R65.21 Severe sepsis with septic shock; G82.20 Paraplegia, unspecified; S24.102S Unspecified injury at T2-T6 level of thoracic spinal cord, sequela; L89.320 Pressure ulcer of left buttock, unstageable; L89.310 Pressure ulcer of right buttock, unstageable; L89.154 Pressure ulcer of sacral region, stage 4; R00.0 Tachycardia, unspecified; N39.0 Urinary tract infection, site not specified; B95.2 Enterococcus as the cause of diseases classified elsewhere; B96.1 Klebsiella pneumoniae [K. pneumoniae] as the cause of diseases classified elsewhere; K80.20 Calculus of gallbladder without cholecystitis without obstruction; E87.6 Hypokalemia; D50.9 Iron deficiency anemia, unspecified; R74.8 Abnormal levels of other serum enzymes; Z96.0 Presence of urogenital implants; Z87.891 Personal history of nicotine dependence; Z91.19 Patient's noncompliance with other medical treatment and regimen; Z93.3 Colostomy status
CPT/HCPCS: 36415; 36556; 71045; 74177; 76705; 80048; 80053; 80074; 80076; 80202; 81001; 82607; 82728; 82746; 83540; 83550; 83605; 83615; 83735; 84443; 85025; 85027; 85380; 85610; 85730; 86140; 86703; 87040; 87077; 87086; 87088; 87186; 87635; 93005; 93306; 93970; 96361; 96365; 99285; A9270; C1751; C9113; C9803; G0432; J2543; J3370; J7030; Q9967; U0003